=== PATIENT | male | born 1970 | race Caucasian/White ===

== ENCOUNTER 2018-03-02 09:03 | Emergency (ER) | payer BC ==
[~2018-03-02] VITALS: Ht 170.2 cm; Wt 65.0 kg
[2018-03-02] MEDS ORDERED: SOD CHLORIDE 0.9% 1,000 ML IV STA (09:09)
[2018-03-02] MEDS ORDERED: ONDANSETRON 4 MG INJ IV STA (09:09)
[2018-03-02 09:10] VITALS: Ht 170.2 cm; Wt 65.0 kg
[2018-03-02] MEDS ORDERED: ONDANSETRON (ODT) 4 MG TAB ODT STA (10:38)
[2018-03-02] MEDS ORDERED: MECLIZINE 12.5 MG TAB PO ONE (11:00)
[2018-03-02] MEDS ORDERED: SOD CHLORIDE 0.9% 1,000 ML IV ONE (11:00)
[2018-03-02 11:03] VITALS: BP 149/97; PULSE 61; RESP 18
--- NOTE | 2018-03-02 11:35 | ERD ---
ER Documentation Chief Complaint Chief Complaint CODE GREEN: C/O DIZZINESS DIAPHORETIC THIS AM. 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 Patient states that he came to work feeling vertiginous type dizziness. He felt lightheaded. Upon arrival at work, he felt lightheaded and then passed out. He reported no chest pain or palpitations, no fevers or chills. He reported no hemoptysis. Neurologically, he feels dizzy and vertiginous, but with no headache, focal weakness or numbness. ROS All systems reviewed and are negative except as per history of present illness. Medications Home Meds No Active Prescriptions or Reported Meds Allergies Allergies: Coded Allergies: No Known Allergy (Unverified , 03/02/18) PMhx/Soc Medical and Surgical Hx: pt denies Medical Hx, pt denies Surgical Hx Hx Alcohol Use: Yes (OCCASIONAL) Hx Substance Use: Yes (MEDICAL MARIJUANA) Hx Tobacco Use: No Smoking Status: Never smoker FmHx Noncontributory for chief complaint Physical Exam Vitals Vital Signs Date Temp Pulse Resp B/P (MAP) Pulse Ox O2 O2 Flow FiO2 Time Delivery Rate 03/02/18 61 18 149/97 100 Room Air 11:03 (114) 03/02/18 96.4 70 26 160/114 100 09:10 (129) Physical Exam GENERAL: The patient is well developed and appropriate for usual state of health in no apparent distress HEENT: Pupils equal, round, and reactive to light. EOMI. There is no scleral icterus. NECK: C-spine is soft and supple, there is no meningismus. There is no cervical lymphadenopathy. LUNGS: Clear to auscultation bilaterally. There are no rales, wheezes or rhonchi. HEART: Regular rate and rhythm, no murmurs, clicks, rubs or gallops. ABDOMEN: Soft, non-tender, non-distended. There are bowel sounds in all four quadrants. No rebound or guarding. EXTREMITIES: There is no peripheral cyanosis or edema. No focal swelling or erythema. NEURO: The patient moves all four extremities with 5/5 strength. Cranial nerves II - XII are intact. Normal gait. Alert and oriented SKIN: There is no apparent rash or petechiae. HEME/LYMPHATIC: There is no evidence of excessive bruising or lymphedema. PSYCHIATRIC: The patient does not appear anxious or depressed. Result Diagram: 03/02/1891803/02/18918 Results 24 hrs Laboratory Tests Test 03/02/18 09:11 03/02/18 09:19 Bedside Glucose 170 mg/dL White Blood Count 8.3 10^3/ul Red Blood Count 4.75 10^6/ul Hemoglobin 14.9 g/dl Hematocrit 43.8 % Mean Corpuscular Volume 92.2 fl Mean Corpuscular Hemoglobin 31.4 pg Mean Corpuscular Hemoglobin Concent 34.0 g/dl Red Cell Distribution Width 11.7 % Platelet Count 353 10^3/UL Mean Platelet Volume 9.7 fl Immature Granulocytes % 0.200 % Neutrophils % 51.0 % Lymphocytes % 34.9 % Monocytes % 9.8 % Eosinophils % 3.3 % Basophils % 0.8 % Nucleated Red Blood Cells % 0.0 /100WBC Immature Granulocytes # 0.020 10^3/ul Neutrophils # 4.2 10^3/ul Lymphocytes # 2.9 10^3/ul Monocytes # 0.8 10^3/ul Eosinophils # 0.3 10^3/ul Basophils # 0.1 10^3/ul Nucleated Red Blood Cells # 0.0 10^3/ul Sodium Level 139 mmol/L Potassium Level 4.2 mmol/L Chloride Level 105 mmol/L Carbon Dioxide Level 23 mmol/L Anion Gap 11 Blood Urea Nitrogen 14 mg/dl Creatinine 1.05 mg/dl Est Glomerular Filtrat Rate mL/min > 60 mL/min Glucose Level 181 mg/dl Calcium Level 9.9 mg/dl Troponin I < 0.012 ng/ml Current Medications Medications Dose Sig/Jessica Start Time Status Last (Trade) Ordered Route PRN Stop Time Admin Dose Reason Admin Sodium 1,000 ml @ Q1H STAT 03/02/18 DC 03/02/18 Chloride 1,000 mls/hr IV 09:09 09:15 03/02/18 10:08 Ondansetron 4 mg ONCE STAT 03/02/18 DC 03/02/18 HCl (Zofran IV 09:09 09:15 Inj) 03/02/18 09:10 Meclizine 25 mg ONCE ONCE 03/02/18 DC 03/02/18 HCl PO 11:00 10:54 (Antivert) 03/02/18 11:01 Ondansetron 4 mg ONCE STAT 03/02/18 DC 03/02/18 HCl (Zofran ODT 10:38 10:54 Odt) 03/02/18 10:39 Sodium 1,000 ml @ Q1H ONCE 03/02/18 03/02/18 Chloride 1,000 mls/hr IV 11:00 10:55 03/02/18 11:59 Procedures/MDM Patient was taken to a room, seen and evaluated. Comfort measures were initiated. Diagnostic tests were ordered and reviewed. 3 LEAD RHYTHM STRIP: Normal sinus rhythm without ectopy EK lead EKG reviewed by myself: Normal Sinus Rhythm Normal [place] and intervals No ST elevation, depression, or T wave inversion Impression: Normal EKG RADIOLOGY: Reviewed with the radiologist REEVALUATION: 1130: Diagnostic tests were appreciated and noted to be normal. Patient appeared to be comfortable after supportive management. [employer] DECISION MAKIN-year-old male presents the emergency department after syncopal episode. Patient has no significant risk factors or concerns for acute neurologic dysfunction or stroke. Patient has no evidence of significant cardiac risk factors and no evidence of ischemia or arrhythmia. Patient appears to be clinically well and comfortable and appropriate for outpatient care. Departure Diagnosis: Primary Impression: Syncope Patient Instructions: Causes of Syncope Additional Instructions: Please follow up with your doctor this week for a recheck. Return for any problems or concerns IMER LAWRENCE Mar 02, 2018 11:35
== END 2018-03-02 12:54 | disposition home or self-care (01) ==
LOC: E/R 09:03
DX: R55 Syncope and collapse (principal)
CPT/HCPCS: 36415; 80048; 82962; 84484; 85025; 93005; 96374; 99284; J2405; J7030